=== PATIENT | male | born 1965 | race Caucasian/White ===

== ENCOUNTER 2020-10-25 09:29 | Day surgery (SDC) | payer BC ==
[~2020-10-25 09:29] MED LIST: Lactated Ringers 1,000 ML IV SCH; Lidocaine 1%/Sod Bicarbonate in NS 8.4% 1 ML Syringe IDERM PRN; Sodium Chloride 0.9% 10 ML Syringe FLUSH PRN
--- NOTE | 2020-10-25 09:46 | PCM.PREANE ---
Preanesthetic Assessment - Anesthesia/Transfusion/Family Hx Anesthesia History: Prior Anesthesia Without Reaction Family History of Anesthesia Reaction: No Transfusion History: No Prior Transfusion(s) - Review of Systems General: Other (anemia, glaucoma, hx of gout, ETOH, last used was 10/23/20 2 beers) Pulmonary: Other (past smoker) Cardiovascular: Other (HTN, last dose 10/24/20) Gastrointestinal: No Symptoms Neurological: No Symptoms - Physical Assessment NPO Status Date: 10/25/20 NPO Status Time: 03:00 Weight: 124 kg ASA Class: 2 Mental Status: Alert & Oriented x3 Dentition: Reports: Normal Dentition ROM/Head Extension: Full Lungs: Clear to Auscultation, Normal Respiratory Effort Cardiovascular: Regular Rate, Regular Rhythm - Allergies Allergies/Adverse Reactions: Allergies Allergy/AdvReac Type Severity Reaction Status Date / Time No Known Allergies Allergy Verified 10/24/20 10:53 - Blood Blood Available: No Product(s) Available: None - Anesthesia Plan Pre-Op Medication Ordered: None - Acknowledgements Anesthesia Type Planned: MAC Pt an Appropriate Candidate for the Planned Anesthesia: Yes Alternatives and Risks of Anesthesia Discussed w Pt/Guardian: Yes Pt/Guardian Understands and Agrees with Anesthesia Plan: Yes PreAnesthesia Questionnaire - Past Health History Medical/Surgical History: Denies Medical/Surgical History HEENT History: Reports: Glaucoma, Impaired Vision Cardiovascular History: Reports: High Cholesterol, Hypertension Respiratory History: Reports: None Gastrointestinal History: Reports: None Genitourinary History: Reports: Other (See Below) Other Genitourinary History: ruptured bladder [employer] History: Reports: None Musculoskeletal History: Reports: Gout, Other (See Below) Other Musculoskeletal History: olecranon bursitis, arthralgia Neurological History: Reports: None Psychiatric History: Reports: None Hematologic History: Reports: Other (See Below) Other Hematologic History: low hgb, reticulacytopenia Immunologic History: Reports: None Oncologic (Cancer) History: Reports: None Dermatologic History: Reports: Other (See Below) Other Dermatologic History: back lipoma - Infectious Disease History Infectious Disease History: Reports: None - Past Surgical History Head Surgeries/Procedures: Reports: None HEENT Surgical History: Reports: Oral Surgery Cardiovascular Surgical History: Reports: None Respiratory Surgical History: Reports: None GI Surgical History: Reports: None Female Surgical History: Reports: None Male Surgical History: Reports: None Endocrine Surgical History: Reports: None Neurological Surgical History: Reports: None Musculoskeletal Surgical History: Reports: Other (See Below) Other Musculoskeletal Surgeries/Procedures:: pelvis fracture with surgical repair Oncologic Surgical History: Reports: None - SUBSTANCE USE Tobacco Use Status *Q: Former Tobacco User Days Per Week of Alcohol Use: 6 Number of Drinks Per Day: 3 Total Drinks Per Week: 18 Recreational Drug Use History: No - HOME MEDS Home Medications: Home Meds Allopurinol [Zyloprim] 450 mg PO DAILY 10/24/20 [History] Lisinopril/Hydrochlorothiazide [Lisinopril-Hctz 20-12.5 mg Tab] 1 tab PO DAILY 10/24/20 [History] atorvaSTATin [Lipitor] 40 mg PO DAILY 10/24/20 [History] - CURRENT (IN HOUSE) MEDS Current Meds: Current Medications Lactated Ringer's (Ringers, Lactated) 1,000 mls @ 125 mls/hr IV ASDIRECTED LALO Stop: 10/25/20 23:00 Lidocaine/Sodium Bicarbonate (Buffered Lidocaine 1% In Ns 8.4%) 0.25 ml IDERM ONETIME PRN PRN Reason: Prior to IV Start Stop: 10/25/20 18:00 Sodium Chloride (Saline Flush) 10 ml FLUSH ASDIRECTED PRN PRN Reason: Keep Vein Open Stop: 10/25/20 18:00
[2020-10-25] MEDS ORDERED: Midazolam 1 MG/ML 2 ML SDV ONE ×2 (09:59→10:02)
[2020-10-25] MEDS ORDERED: fentaNYL 100 MCG/2 ML SDV ONE ×2 (09:59→10:58)
[2020-10-25] MEDS ORDERED: Propofol 200 MG/20 ML SDV ONE ×2 (09:59→10:47)
[2020-10-25] MEDS ORDERED: Bupivacaine 0.5% 30 ML SDV ONE (10:18)
--- NOTE | 2020-10-25 11:52 | PCM48HPAN ---
Post Anesthesia Note - EVALUATION WITHIN 48HRS OF ANESTHETIC Vital Signs in Normal Range: Yes Patient Participated in Evaluation: Yes Respiratory Function Stable: Yes Airway Patent: Yes Cardiovascular Function Stable: Yes Hydration Status Stable: Yes Pain Control Satisfactory: Yes Nausea and Vomiting Control Satisfactory: Yes Mental Status Recovered: Yes Vital Signs: Last Vital Signs Temp 36.5 C 10/25/20 09:40 Pulse 90 10/25/20 09:40 Resp 16 10/25/20 09:40 BP 142/80 H 10/25/20 09:40 Pulse Ox 95 10/25/20 09:40
--- NOTE | 2020-10-25 11:56 | PCM.PRNOTE ---
- Free Text/Narrative Note: Date: 10/25/2020 Operation: screening colonoscopy and removal of left posterior shoulder lipomatous lesion Surgeon: Rasheed Kate MD Findings: difficult colonoscopy due to tight turns, twisting of sigmoid. Two small polyps identified and removed. Prep was fair. Left shoulder lesion appeared lipomatous with multilobular fatty tissue excised. Detailed Report: The patient was taken to the endoscopy suite and placed in left lateral decubitus position. Timeout was performed, monitored anesthesia care was initia mariana. Digital exam was unremarkable, the prostate felt normal. There were no external anal lesions. The colonoscope was inserted and advanced all the way to the cecum. The appendiceal orifice was visualized. Reaching the cecum was difficult due to patient body habitus and tortuous colon, with tight twisting and turning within the sigmoid colon. The scope was slowly withdrawn and mucosal surfaces were carefully inspected. Prep was fair. A small polyp was identified in the ascending colon which was removed completely with cold forceps. An additional mid rectal lesion, flat and less than 1 cm, was removed entirely with cold forceps as well. Air was suctioned prior to withdrawal of the scope. The patient tolerated this portion of the procedure well. Next he was positioned in right lateral decubitus, and the visible lesion in the subcutaneous tissue of left shoulder was prepped with ChloraPrep and draped. 6 cc 1% lidocaine with epinephrine was injected intradermally over the site of the lesion. A 5 cm transversely oriented linear incision was made through the skin with a scalpel. Skin flaps were developed with use of monopolar energy. The lesion was teased out from the surrounding subcutaneous tissue. Although not a single lobule type lipoma, a wad of multilobular fatty tissue was removed, and afterwards there was no remaining palpable lesion in the area. The specimen was sent for pathology. The wound was hemostatic. This was closed in layers with deep dermal 3-0 Vicryl suture placed in interrupted fashion and a running 4-0 Vicryl subcuticular stitch. The wound was dressed with Dermabond, Telfa and Tegaderm.
[2020-10-25 13:01] VITALS: BP 107/54; PULSE 79
== END 2020-10-25 13:17 | disposition home or self-care (01) ==
LOC: JD.SDS 09:29
PROVIDERS: ATTEND Surgery
DX: D17.1 Benign lipomatous neoplasm of skin and subcutaneous tissue of trunk (principal); D12.2 Benign neoplasm of ascending colon; K62.1 Rectal polyp; D53.9 Nutritional anemia, unspecified; E78.00 Pure hypercholesterolemia, unspecified; M10.9 Gout, unspecified; I10 Essential (primary) hypertension; E66.9 Obesity, unspecified; Z68.41 Body mass index [BMI] 40.0-44.9, adult; Z87.891 Personal history of nicotine dependence; Z79.899 Other long term (current) drug therapy
CPT/HCPCS: 21931; 45380; J2250; J2704; J3010; J3490; J7120; 00300

== ENCOUNTER 2024-06-29 07:15 | Day surgery (SDC) | payer BC ==
[~2024-06-29 07:15] MED LIST changes: +Dexamethasone 4 MG/ML 5 ML MDV ONE; -Lactated Ringers 1,000 ML IV SCH; +Lidocaine 1% 5 ML VIAL ONE; -Lidocaine 1%/Sod Bicarbonate in NS 8.4% 1 ML Syringe IDERM PRN; +Midazolam 1 MG/ML 2 ML SDV ONE; +Ondansetron 4 MG/2 ML SDV ONE; +Propofol 200 MG/20 ML SDV ONE; +Sodium Chloride 0.9% 10 ML Syringe FLUSH SCH; +fentaNYL 100 MCG/2 ML SDV ONE
[2024-06-29] MEDS ORDERED: ceFAZolin 2 GM Vial ONE ×2 (07:23→07:46)
[2024-06-29] MEDS: Lactated Ringers 1,000 ML IV SCH (07:45)
[2024-06-29] MEDS: oxyCODONE ER 10 MG TAB.ER PO ONE (07:58)
[2024-06-29] MEDS: Pregabalin 25 MG Cap PO ONE (07:58)
[2024-06-29] MEDS: Acetaminophen 325 MG Tab PO ONE (07:58)
[2024-06-29] MEDS ORDERED: Lidocaine 1% 5 ML VIAL ONE (08:38)
[2024-06-29] MEDS ORDERED: Lactated Ringers 1,000 ML ONE ×2 (08:49→09:51)
[2024-06-29] MEDS ORDERED: Phenylephrine 1% 10 MG/ML SDV ONE (08:59)
[2024-06-29] MEDS ORDERED: ePHEDrine 50 MG/ML SDV ONE (09:47)
[2024-06-29] MEDS ORDERED: Propofol 200 MG/20 ML SDV ONE ×2 (09:52→10:22)
[2024-06-29] MEDS: Vancomycin 1 GM SDV ONE (10:19)
[2024-06-29] MEDS: Tranexamic Acid 1,000 MG/10 ML Vial ONE (10:19)
[2024-06-29] MEDS: Morphine 8 MG, EPINEPHrine 0.3 MG, Cefuroxime 750 MG, Ketorolac 30 MG, Sodium Chloride ... PRN (10:19)
[2024-06-29] MEDS ORDERED: Ketorolac 15 MG/ML SDV ONE (10:24)
[2024-06-29 14:06] VITALS: PULSE 83
[2024-06-29] MEDS: oxyCODONE 5 MG Tab PO PRN (15:42)
[2024-06-29 16:10] VITALS: BP 163/76
== END 2024-06-29 16:00 | disposition home or self-care (01) ==
LOC: JD.SDS 07:15
PROVIDERS: ATTEND Orthopaedic Surgery
DX: M16.12 Unilateral primary osteoarthritis, left hip (principal); I10 Essential (primary) hypertension; E78.00 Pure hypercholesterolemia, unspecified; E66.9 Obesity, unspecified; Z79.82 Long term (current) use of aspirin; Z68.42 Body mass index [BMI] 45.0-49.9, adult; Z79.899 Other long term (current) drug therapy; Z87.891 Personal history of nicotine dependence
CPT/HCPCS: 36415; 73501-26-LT; 73501-LT; 86850; 86900; 86901; 97110-GP; 97116-GP; 97161-GP; A9270-GY; C1713; C1776; J0171; J0690; J0697; J1100; J1885; J2250; J2270; J2371; J2405; J2704; J3010; J3370; J3490; J7120